=== PATIENT | male | born 1970 | race Hispanic/Latino ===

== ENCOUNTER 2023-02-18 16:50 | Inpatient (IN) | payer BC ==
[~2023-02-18] VITALS: Ht 188 cm; Wt 144.9 kg
[2023-02-18] MEDS ORDERED: AMLO-258 PO (17:51)
[2023-02-18] MEDS ORDERED: ATOR10TA69 PO (17:51)
[2023-02-18] MEDS ORDERED: VANCOMYCIN KIT 1 GM/250 ML IV.KIT IV ONE (18:00)
[2023-02-18] MEDS ORDERED: VANCOMYCIN PROTOCOL PER PHARMACY IV SCH (18:00)
[2023-02-18] MEDS ORDERED: CARV25TA PO (18:05)
[2023-02-18] MEDS ORDERED: INSU100V12 SQ (18:05)
[2023-02-18] MEDS ORDERED: METF-444 PO (18:05)
[2023-02-18] MEDS ORDERED: GLIP5TAB11 PO (18:05)
[2023-02-18] MEDS: CEFEPIME HCL 2 GM VIAL IVPB SCH (18:12)
[2023-02-18 18:52] LABS: BASOPHILS # (AUTO) 0.05 K/uL (0.00-0.20); BASOPHILS % (AUTO) 0.7 % (0.0-5.0); EOSINOPHILS # (AUTO) 0.46 K/uL (0.00-0.70); EOSINOPHILS % (AUTO) 6.6 % (0.0-8.0); HEMATOCRIT 36.1 % (42-54); IMMATURE GRANULOCYTE ABSOLUTE 0.03 K/uL (0-1); LYMPHOCYTES # (AUTO) 1.7 K/uL (1.0-4.8); LYMPHOCYTES % (AUTO) 24.2 % (21.0-51.0); MEAN CORPUSCULAR HEMOGLOBIN 30.2 pg (27.0-33.0); MEAN CORPUSCULAR VOLUME 91.6 fL (79-99); MONOCYTES # (AUTO) 0.6 K/uL (0.1-1.0); NEUTROPHILS # (AUTO) 4.2 K/uL (1.8-7.7); NEUTROPHILS % (AUTO) 60.1 % (40.0-77.0); PLATELET COUNT (AUTO) 401 K/uL (130-400); RED BLOOD CELL COUNT(AUTO) 3.94 MIL/uL (4.50-6.20); RED CELL DISTRIBUTION WIDTH 12.9 % (11.0-15.5)
[2023-02-18 19:12] LABS: CREATININE 0.9 mg/dL (0.5-1.5); POTASSIUM 4.7 mmol/L (3.5-5.1)
[2023-02-18 19:16] LABS: ALBUMIN 3.1 g/dL (3.5-5.0); BILIRUBIN,TOTAL 0.4 mg/dL (0.2-1.0); TOTAL PROTEIN, SERUM 8.5 g/dL (6.0-8.3)
[2023-02-18] MEDS ORDERED: MORPHINE 4 MG SYG IV PRN (21:30)
[2023-02-18] MEDS ORDERED: ACETAMINOPHEN 325 MG TAB PO PRN (21:30)
[2023-02-18] MEDS ORDERED: POTASSIUM CHLORIDE 10% ELIXIR 20 MEQ/15 ML UDCUP PO PRN (21:30)
[2023-02-18] MEDS ORDERED: POTASSIUM CHLORIDE 20MEQ/100ML 100 ML IV PRN (21:30)
[2023-02-18] MEDS ORDERED: ONDANSETRON 4MG INJ IV PRN (21:30)
[2023-02-18] MEDS ORDERED: KCL 20 MEQ ERTAB PO PRN (21:30)
[2023-02-18] MEDS ORDERED: MORPHINE 2 MG SYG IV PRN (21:30)
[2023-02-18 21:50] VITALS: BP 175/94; PULSE 89; RESP 21
[2023-02-18] MEDS ORDERED: AMLO-257 PO (22:14)
[2023-02-18 23:08] VITALS: BP 143/81; PULSE 74; RESP 20
[2023-02-18] MEDS: VANCOMYCIN 1G/250ML KIT 250 ML IV SCH (23:17)
[2023-02-19] VITALS (21 sets, daily range): BP systolic 119–155; BP diastolic 74–85; PULSE 66–83; RESP 17–22; O2SAT 94–96
[2023-02-19] MEDS: ACETAMINOPHEN 325 MG TAB PO PRN ×2 (03:17→23:32)
[2023-02-19] MEDS: CEFEPIME HCL 2 GM VIAL IVPB SCH (05:15)
[2023-02-19 05:19] LABS: BASOPHILS # (AUTO) 0.05 K/uL (0.00-0.20); BASOPHILS % (AUTO) 0.8 % (0.0-5.0); EOSINOPHILS % (AUTO) 7.7 % (0.0-8.0); HEMATOCRIT 33.6 % (42-54); IMMATURE GRANULOCYTE ABSOLUTE 0.04 K/uL (0-1); LYMPHOCYTES # (AUTO) 1.3 K/uL (1.0-4.8); LYMPHOCYTES % (AUTO) 19.3 % (21.0-51.0); MEAN CORPUSCULAR HEMOGLOBIN 29.9 pg (27.0-33.0); MEAN CORPUSCULAR HGB CONC 31.8 g/dL (32.0-36.0); MEAN CORPUSCULAR VOLUME 93.9 fL (79-99); MONOCYTES # (AUTO) 0.8 K/uL (0.1-1.0); MONOCYTES % (AUTO) 11.6 % (3.0-13.0); NEUTROPHILS # (AUTO) 3.9 K/uL (1.8-7.7); PLATELET COUNT (AUTO) 330 K/uL (130-400); RED BLOOD CELL COUNT(AUTO) 3.58 MIL/uL (4.50-6.20); RED CELL DISTRIBUTION WIDTH 12.8 % (11.0-15.5); WHITE BLOOD COUNT (AUTO) 6.5 K/uL (4.8-10.8)
[2023-02-19 05:38] LABS: MAGNESIUM 1.6 mg/dL (1.80-2.40); PHOSPHORUS 3.5 mg/dL (2.5-4.9); POTASSIUM 4.2 mmol/L (3.5-5.1)
[2023-02-19 05:41] LABS: HEMOGLOBIN A1C 8.1 % (4.0-6.0)
[2023-02-19] MEDS: VANCOMYCIN 1G/250ML KIT 250 ML IV SCH ×2 (06:01→14:47)
[2023-02-19] MEDS: INSULIN HUMULIN R 100 UNIT/ML 3ML SQ SCH ×4 (07:09→20:40)
[2023-02-19] MEDS: AMLODIPINE 5 MG TAB PO SCH (08:37)
[2023-02-19] MEDS: FAMOTIDINE 20MG TAB PO SCH ×2 (08:37→20:38)
[2023-02-19] MEDS: GLIPIZIDE 5 MG TABLET PO SCH (08:37)
[2023-02-19] MEDS: CARVEDILOL 25 MG TABLET PO SCH (08:37)
[2023-02-19] MEDS: METFORMIN HCL 500 MG TAB.SR.24H PO SCH (08:38)
[2023-02-19] MEDS: ENOXAPARIN SODIUM 40 MG/0.4 ML SYRINGE SQ SCH (08:38)
[2023-02-19] MEDS ORDERED: INSULIN GLARGINE 100 UNITS/ML 10 ML VIAL SQ ONE (09:00)
[2023-02-19] MEDS ORDERED: FAMOTIDINE 20MG VIAL IV ONE (14:29)
[2023-02-19] MEDS ORDERED: MIDAZOLAM HCL 1 MG/ML 2ML VIAL ONE ×2 (14:36→15:15)
[2023-02-19] MEDS ORDERED: LIDOCAINE PF 100MG/5ML (2%) SYRINGE 5ML ONE (14:36)
[2023-02-19] MEDS ORDERED: FENTANYL CITRATE PF 50 MCG/1 ML 2ML VIAL ONE (14:36)
[2023-02-19] MEDS ORDERED: PROPOFOL 10 MG/ML 20ML VIAL IV ONE (14:36)
[2023-02-19] MEDS ORDERED: VANCOMYCIN 1G/250ML KIT 250 ML IV ONE (14:42)
[2023-02-19] MEDS ORDERED: DiphenhydrAMINE HCL 50 MG/ML VIAL ONE (15:08)
[2023-02-19] MEDS ORDERED: ONDANSETRON 4MG INJ ONE (15:13)
[2023-02-19] MEDS ORDERED: LIDOCAINE HCL 1% 10 ML VIAL ONE (15:17)
[2023-02-19] MEDS ORDERED: BUPIVACAINE/PF 0.25% 10ML VIAL IJ ONE (15:18)
[2023-02-19] MEDS: CEFEPIME HCL 1 GM VIAL IVPB SCH (18:15)
[2023-02-19] MEDS: VANCOMYCIN 1.25 GM/250 ML BAG 250 ML IV SCH (20:38)
[2023-02-19] MEDS: ATORVASTATIN 10 MG TABLET PO SCH (20:38)
[2023-02-19] MEDS: INSULIN GLARGINE 100 UNITS/ML 10 ML VIAL SQ SCH (20:39)
[2023-02-19] MEDS ORDERED: INSULIN DETEMIR 50 UNIT SQ SCH (21:00)
[2023-02-20] MEDS: MAGNESIUM 2GM PREMIX 50ML 50 ML IV PRN ×2 (00:12→12:21)
[2023-02-20 00:15] VITALS: BP 148/81; PULSE 76; RESP 18
[2023-02-20 02:17] LABS: APPEARANCE,URINE CLEAR (CLEAR); BILIRUBIN,URINE NEGATIVE (NEGATIVE); COLOR,URINE LIGHT-YELLOW (YELLOW); GLUCOSE, URINE (UA) NEGATIVE (NEGATIVE); KETONES,URINE NEGATIVE (NEGATIVE); LEUKOCYTE ESTERASE ,URINE NEGATIVE Leu/uL (NEGATIVE); NITRATE,URINE NEGATIVE (NEGATIVE); OCCULT BLOOD,URINE NEGATIVE (NEGATIVE); PH,URINE 5.5 (5.0-8.0); PROTEIN,URINE NEGATIVE (NEGATIVE); UROBILINOGEN,URINE 0.2 mg/dL (0.2-1.0)
[2023-02-20 02:19] LABS: ADD UA MICROSCOPIC NO
[2023-02-20 04:10] VITALS: BP 135/85; PULSE 78; RESP 18
[2023-02-20] MEDS: CEFEPIME HCL 1 GM VIAL IVPB SCH ×2 (04:52→17:56)
[2023-02-20] MEDS: VANCOMYCIN 1.25 GM/250 ML BAG 250 ML IV SCH ×3 (05:40→22:14)
[2023-02-20 05:59] LABS: BASOPHILS # (AUTO) 0.04 K/uL (0.00-0.20); BASOPHILS % (AUTO) 0.6 % (0.0-5.0); EOSINOPHILS # (AUTO) 0.43 K/uL (0.00-0.70); EOSINOPHILS % (AUTO) 6.3 % (0.0-8.0); HEMATOCRIT 34.4 % (42-54); IMMATURE GRANULOCYTE ABSOLUTE 0.04 K/uL (0-1); LYMPHOCYTES # (AUTO) 1.2 K/uL (1.0-4.8); LYMPHOCYTES % (AUTO) 17.7 % (21.0-51.0); MEAN CORPUSCULAR HEMOGLOBIN 29.7 pg (27.0-33.0); MONOCYTES # (AUTO) 0.9 K/uL (0.1-1.0); NEUTROPHILS # (AUTO) 4.2 K/uL (1.8-7.7); NEUTROPHILS % (AUTO) 61.8 % (40.0-77.0); PLATELET COUNT (AUTO) 337 K/uL (130-400); RED CELL DISTRIBUTION WIDTH 12.7 % (11.0-15.5); WHITE BLOOD COUNT (AUTO) 6.8 K/uL (4.8-10.8)
[2023-02-20] MEDS: INSULIN HUMULIN R 100 UNIT/ML 3ML SQ SCH ×4 (06:03→21:42)
[2023-02-20 06:15] LABS: ALBUMIN 2.6 g/dL (3.5-5.0); BILIRUBIN,TOTAL 0.2 mg/dL (0.2-1.0); MAGNESIUM 1.9 mg/dL (1.80-2.40); POTASSIUM 4.5 mmol/L (3.5-5.1); TOTAL PROTEIN, SERUM 7.2 g/dL (6.0-8.3)
[2023-02-20 08:00] VITALS: BP 161/93; PULSE 81; RESP 20
[2023-02-20] MEDS: AMLODIPINE 5 MG TAB PO SCH (08:48)
[2023-02-20] MEDS: GLIPIZIDE 5 MG TABLET PO SCH (08:48)
[2023-02-20] MEDS: FAMOTIDINE 20MG TAB PO SCH ×2 (08:48→21:33)
[2023-02-20] MEDS: ENOXAPARIN SODIUM 40 MG/0.4 ML SYRINGE SQ SCH (08:48)
[2023-02-20] MEDS: METFORMIN HCL 500 MG TAB.SR.24H PO SCH (08:48)
[2023-02-20] MEDS: CARVEDILOL 25 MG TABLET PO SCH (08:53)
[2023-02-20 12:00] VITALS: BP 137/81; PULSE 76; RESP 18
[2023-02-20 16:00] VITALS: BP 132/81; PULSE 75; RESP 18
[2023-02-20 20:00] VITALS: BP 145/82; PULSE 85; RESP 20
[2023-02-20] MEDS: ATORVASTATIN 10 MG TABLET PO SCH (21:33)
[2023-02-20] MEDS: INSULIN GLARGINE 100 UNITS/ML 10 ML VIAL SQ SCH (21:40)
[2023-02-21] VITALS (7 sets, daily range): BP systolic 134–150; BP diastolic 78–86; PULSE 71–81; RESP 18–20; O2SAT 94
[2023-02-21 05:43] LABS: HEMATOCRIT 36.3 % (42-54); MEAN CORPUSCULAR HEMOGLOBIN 29.5 pg (27.0-33.0); MEAN CORPUSCULAR HGB CONC 31.7 g/dL (32.0-36.0); MEAN CORPUSCULAR VOLUME 93.1 fL (79-99); RED BLOOD CELL COUNT(AUTO) 3.9 MIL/uL (4.50-6.20); RED CELL DISTRIBUTION WIDTH 12.6 % (11.0-15.5); WHITE BLOOD COUNT (AUTO) 6.2 K/uL (4.8-10.8)
[2023-02-21] MEDS: CEFEPIME HCL 1 GM VIAL IVPB SCH ×2 (06:29→18:31)
[2023-02-21] MEDS: INSULIN HUMULIN R 100 UNIT/ML 3ML SQ SCH ×4 (06:33→20:32)
[2023-02-21] MEDS: VANCOMYCIN 1.25 GM/250 ML BAG 250 ML IV SCH (07:12)
[2023-02-21] MEDS: ENOXAPARIN SODIUM 40 MG/0.4 ML SYRINGE SQ SCH (10:39)
[2023-02-21] MEDS: CARVEDILOL 25 MG TABLET PO SCH (10:42)
[2023-02-21] MEDS: METFORMIN HCL 500 MG TAB.SR.24H PO SCH (10:42)
[2023-02-21] MEDS: AMLODIPINE 5 MG TAB PO SCH (10:44)
[2023-02-21] MEDS: FAMOTIDINE 20MG TAB PO SCH ×2 (10:44→20:31)
[2023-02-21] MEDS: GLIPIZIDE 5 MG TABLET PO SCH (10:44)
[2023-02-21] MEDS: VANCOMYCIN 1.5 GM/250 ML BAG 250 ML IV SCH (18:33)
[2023-02-21] MEDS: MAGNESIUM 2GM PREMIX 50ML 50 ML IV PRN (20:32)
[2023-02-21] MEDS: ATORVASTATIN 10 MG TABLET PO SCH (20:32)
[2023-02-21] MEDS: INSULIN GLARGINE 100 UNITS/ML 10 ML VIAL SQ SCH (20:33)
[2023-02-22] VITALS (7 sets, daily range): BP systolic 122–150; BP diastolic 73–88; PULSE 70–83; RESP 18–20; O2SAT 94–95
[2023-02-22] MEDS: CEFEPIME HCL 1 GM VIAL IVPB SCH ×2 (04:43→18:14)
[2023-02-22] MEDS: VANCOMYCIN 1.5 GM/250 ML BAG 250 ML IV SCH ×2 (04:43→18:14)
[2023-02-22 06:07] LABS: HEMATOCRIT 33.6 % (42-54); MEAN CORPUSCULAR HEMOGLOBIN 29.6 pg (27.0-33.0); MEAN CORPUSCULAR HGB CONC 33.3 g/dL (32.0-36.0); MEAN CORPUSCULAR VOLUME 88.7 fL (79-99); RED BLOOD CELL COUNT(AUTO) 3.79 MIL/uL (4.50-6.20); RED CELL DISTRIBUTION WIDTH 12.8 % (11.0-15.5); WHITE BLOOD COUNT (AUTO) 5.8 K/uL (4.8-10.8)
[2023-02-22] MEDS: INSULIN HUMULIN R 100 UNIT/ML 3ML SQ SCH ×4 (06:12→20:30)
[2023-02-22 06:22] LABS: ALBUMIN 2.6 g/dL (3.5-5.0); BILIRUBIN,TOTAL 0.2 mg/dL (0.2-1.0); CREATININE 0.8 mg/dL (0.5-1.5); MAGNESIUM 1.8 mg/dL (1.80-2.40); TOTAL PROTEIN, SERUM 7.3 g/dL (6.0-8.3)
[2023-02-22] MEDS: MAGNESIUM 2GM PREMIX 50ML 50 ML IV PRN (06:28)
[2023-02-22] MEDS: AMLODIPINE 5 MG TAB PO SCH (08:49)
[2023-02-22] MEDS: FAMOTIDINE 20MG TAB PO SCH ×2 (08:50→20:30)
[2023-02-22] MEDS: GLIPIZIDE 5 MG TABLET PO SCH (08:50)
[2023-02-22] MEDS: CARVEDILOL 25 MG TABLET PO SCH (08:50)
[2023-02-22] MEDS: METFORMIN HCL 500 MG TAB.SR.24H PO SCH (08:51)
[2023-02-22] MEDS: ENOXAPARIN SODIUM 40 MG/0.4 ML SYRINGE SQ SCH (08:53)
[2023-02-22] MEDS: ATORVASTATIN 10 MG TABLET PO SCH (20:30)
[2023-02-22] MEDS: LISINOPRIL 2.5 MG TABLET PO SCH (20:30)
[2023-02-22] MEDS: INSULIN GLARGINE 100 UNITS/ML 10 ML VIAL SQ SCH (20:31)
[2023-02-23] VITALS (9 sets, daily range): BP systolic 124–145; BP diastolic 72–81; PULSE 69–78; RESP 18–20; O2SAT 94–95
[2023-02-23] MEDS: CEFEPIME HCL 1 GM VIAL IVPB SCH ×2 (05:33→20:34)
[2023-02-23 05:36] LABS: HEMATOCRIT 36.3 % (42-54); MEAN CORPUSCULAR HEMOGLOBIN 29.8 pg (27.0-33.0); MEAN CORPUSCULAR HGB CONC 32.2 g/dL (32.0-36.0); MEAN CORPUSCULAR VOLUME 92.4 fL (79-99); RED BLOOD CELL COUNT(AUTO) 3.93 MIL/uL (4.50-6.20); RED CELL DISTRIBUTION WIDTH 12.6 % (11.0-15.5)
[2023-02-23 05:50] LABS: ALBUMIN 2.9 g/dL (3.5-5.0); BILIRUBIN,TOTAL 0.2 mg/dL (0.2-1.0); CREATININE 1.1 mg/dL (0.5-1.5); MAGNESIUM 1.8 mg/dL (1.80-2.40); POTASSIUM 4.4 mmol/L (3.5-5.1); TOTAL PROTEIN, SERUM 7.7 g/dL (6.0-8.3); VANCOMYCIN TROUGH 19.4 UG/ML (10.0-20.0)
[2023-02-23] MEDS: INSULIN HUMULIN R 100 UNIT/ML 3ML SQ SCH ×4 (05:58→21:00)
[2023-02-23] MEDS ORDERED: PHARMACY COMMUNICATION MISC SCH (06:00)
[2023-02-23] MEDS: MAGNESIUM 2GM PREMIX 50ML 50 ML IV PRN (06:28)
[2023-02-23] MEDS: VANCOMYCIN 1G/250ML KIT 250 ML IV SCH ×2 (10:22→22:14)
[2023-02-23] MEDS: METFORMIN HCL 500 MG TAB.SR.24H PO SCH (10:22)
[2023-02-23] MEDS: CARVEDILOL 25 MG TABLET PO SCH (10:23)
[2023-02-23] MEDS: FAMOTIDINE 20MG TAB PO SCH ×2 (10:24→22:15)
[2023-02-23] MEDS: AMLODIPINE 5 MG TAB PO SCH (10:24)
[2023-02-23] MEDS: GLIPIZIDE 5 MG TABLET PO SCH (10:25)
[2023-02-23] MEDS: LISINOPRIL 2.5 MG TABLET PO SCH ×2 (10:26→22:15)
[2023-02-23] MEDS: ENOXAPARIN SODIUM 40 MG/0.4 ML SYRINGE SQ SCH (10:28)
[2023-02-23 20:10] LABS: RETICULOCYTE % (AUTO) 1.82 % (0.42-2.23)
[2023-02-23 20:34] LABS: % IRON SATURATION 13.2 % (30-44)
[2023-02-23] MEDS: ATORVASTATIN 10 MG TABLET PO SCH (22:15)
[2023-02-23] MEDS: INSULIN GLARGINE 100 UNITS/ML 10 ML VIAL SQ SCH (22:17)
[2023-02-24 04:24] VITALS: BP 149/87; PULSE 70; RESP 17
[2023-02-24] MEDS: CEFEPIME HCL 1 GM VIAL IVPB SCH ×2 (06:00→18:05)
[2023-02-24] MEDS: INSULIN HUMULIN R 100 UNIT/ML 3ML SQ SCH ×3 (06:40→16:30)
[2023-02-24 07:02] LABS: ALBUMIN 2.7 g/dL (3.5-5.0); BILIRUBIN,TOTAL 0.3 mg/dL (0.2-1.0); POTASSIUM 4.1 mmol/L (3.5-5.1); TOTAL PROTEIN, SERUM 7.4 g/dL (6.0-8.3); VANCOMYCIN TROUGH 16.2 UG/ML (10.0-20.0)
[2023-02-24 07:12] LABS: BASOPHILS # (AUTO) 0.07 K/uL (0.00-0.20); BASOPHILS % (AUTO) 1.4 % (0.0-5.0); EOSINOPHILS % (AUTO) 9.8 % (0.0-8.0); HEMATOCRIT 35.3 % (42-54); IMMATURE GRANULOCYTE ABSOLUTE 0.04 K/uL (0-1); LYMPHOCYTES # (AUTO) 1.3 K/uL (1.0-4.8); LYMPHOCYTES % (AUTO) 25.3 % (21.0-51.0); MEAN CORPUSCULAR HEMOGLOBIN 29.5 pg (27.0-33.0); MEAN CORPUSCULAR HGB CONC 32.3 g/dL (32.0-36.0); MEAN CORPUSCULAR VOLUME 91.5 fL (79-99); MONOCYTES # (AUTO) 0.7 K/uL (0.1-1.0); MONOCYTES % (AUTO) 13.3 % (3.0-13.0); NEUTROPHILS # (AUTO) 2.5 K/uL (1.8-7.7); NEUTROPHILS % (AUTO) 49.4 % (40.0-77.0); PLATELET COUNT (AUTO) 377 K/uL (130-400); RED BLOOD CELL COUNT(AUTO) 3.86 MIL/uL (4.50-6.20); RED CELL DISTRIBUTION WIDTH 12.8 % (11.0-15.5); WHITE BLOOD COUNT (AUTO) 5.1 K/uL (4.8-10.8)
[2023-02-24 08:00] VITALS: BP 151/88; PULSE 72; RESP 18
[2023-02-24] MEDS ORDERED: CARVEDILOL 25 MG TABLET PO SCH (09:00)
[2023-02-24 09:40] VITALS: O2SAT 96
[2023-02-24] MEDS: VANCOMYCIN 1G/250ML KIT 250 ML IV SCH (09:42)
[2023-02-24] MEDS: LISINOPRIL 2.5 MG TABLET PO SCH (09:43)
[2023-02-24] MEDS: FAMOTIDINE 20MG TAB PO SCH (09:44)
[2023-02-24] MEDS: METFORMIN HCL 500 MG TAB.SR.24H PO SCH (09:44)
[2023-02-24] MEDS: GLIPIZIDE 5 MG TABLET PO SCH (09:44)
[2023-02-24] MEDS: AMLODIPINE 5 MG TAB PO SCH (09:45)
[2023-02-24] MEDS: ENOXAPARIN SODIUM 40 MG/0.4 ML SYRINGE SQ SCH (09:46)
[2023-02-24 11:59] VITALS: BP 121/72; PULSE 74; RESP 18
[2023-02-24 17:12] VITALS: BP 120/72; PULSE 69; RESP 18
[2023-02-24 20:00] VITALS: BP 137/79; PULSE 71; RESP 15
== END 2023-02-24 20:40 | DRG 617 ==
LOC: EDH 16:50 → DIRECT 16:51 → UNDOADMIN 17:37 → DIRECT 21:37 → 3CH 21:37
PROVIDERS: ADMIT Internal Medicine; ATTEND Internal Medicine
PROC: 0QBN0ZZ Excision of Right Metatarsal, Open Approach (ICD-10-PCS; 2023-02-19)
PROC: 0Y6T0Z0 Detachment at Right 3rd Toe, Complete, Open Approach (ICD-10-PCS; principal; 2023-02-19 15:06)
DX: E11.69 Type 2 diabetes mellitus with other specified complication (principal); L03.115 Cellulitis of right lower limb; M86.8X7 Other osteomyelitis, ankle and foot; Z68.41 Body mass index [BMI] 40.0-44.9, adult; E11.51 Type 2 diabetes mellitus with diabetic peripheral angiopathy without gangrene; E11.621 Type 2 diabetes mellitus with foot ulcer; I10 Essential (primary) hypertension; E78.5 Hyperlipidemia, unspecified; E66.01 Morbid (severe) obesity due to excess calories; D64.9 Anemia, unspecified; Z79.4 Long term (current) use of insulin; Z83.3 Family history of diabetes mellitus
CPT/HCPCS: 36415; 71045; 73630; 73718; 80048; 80053; 80202; 81003; 82607; 82728; 82746; 82948; 83036; 83540; 83550; 83605; 83735; 84100; 84145; 85025; 85027; 85045; 86850; 86900; 86901; 87040; 87070; 87076; 87077; 87186; 88304; 88311; 93925; G0378; J0692; J1200; J1650; J1815; J2001; J2250; J2405; J2704; J3010; J3370; J3475; J3490; 3370; A4216; A4222; A4223; A6446; C1729

== ENCOUNTER 2023-05-19 12:10 | Inpatient (IN) | payer BC ==
[~2023-05-19] VITALS: Ht 190.5 cm; Wt 140.5 kg
[~2023-05-19 12:10] MED LIST: AMLO-257 PO; ATOR10TA69 PO
[2023-05-19] MEDS ORDERED: 0.9%NACL 1000ML 1,000 ML IV ONE (13:00)
[2023-05-19] MEDS ORDERED: VANCOMYCIN PROTOCOL PER PHARMACY IV SCH (13:00)
[2023-05-19] MEDS ORDERED: CEFEPIME HCL 2 GM VIAL IVPB SCH (13:00)
[2023-05-19 14:16] LABS: BASOPHILS # (AUTO) 0.03 K/uL (0.00-0.20); BASOPHILS % (AUTO) 0.4 % (0.0-5.0); EOSINOPHILS # (AUTO) 0.04 K/uL (0.00-0.70); EOSINOPHILS % (AUTO) 0.5 % (0.0-8.0); HEMATOCRIT 37.7 % (42-54); IMMATURE GRANULOCYTE ABSOLUTE 0.03 K/uL (0-1); LYMPHOCYTES # (AUTO) 1.2 K/uL (1.0-4.8); LYMPHOCYTES % (AUTO) 13.9 % (21.0-51.0); MEAN CORPUSCULAR HEMOGLOBIN 29.3 pg (27.0-33.0); MEAN CORPUSCULAR HGB CONC 32.4 g/dL (32.0-36.0); MEAN CORPUSCULAR VOLUME 90.6 fL (79-99); MONOCYTES # (AUTO) 0.9 K/uL (0.1-1.0); MONOCYTES % (AUTO) 11.2 % (3.0-13.0); NEUTROPHILS # (AUTO) 6.1 K/uL (1.8-7.7); NEUTROPHILS % (AUTO) 73.6 % (40.0-77.0); PLATELET COUNT (AUTO) 251 K/uL (130-400); RED BLOOD CELL COUNT(AUTO) 4.16 MIL/uL (4.50-6.20); RED CELL DISTRIBUTION WIDTH 13.5 % (11.0-15.5); WHITE BLOOD COUNT (AUTO) 8.3 K/uL (4.8-10.8)
[2023-05-19 14:24] LABS: HEMOGLOBIN A1C 7.4 % (4.0-6.0)
[2023-05-19 14:32] LABS: CREATININE 1.1 mg/dL (0.5-1.5)
[2023-05-19 14:48] LABS: THYROID STIMULATING HORMONE 0.75 uIU/mL (0.36-3.74)
[2023-05-19 15:04] LABS: POTASSIUM 4.1 mmol/L (3.5-5.1)
[2023-05-19 15:23] LABS: ERYTHROCYTE SEDIMENTATION RATE 105 MM/HR (0-20)
[2023-05-19] MEDS: INSULIN HUMULIN R 100 UNIT/ML 3ML SQ SCH ×2 (16:30→20:55)
[2023-05-19] MEDS: VANCOMYCIN 1G/250ML KIT 250 ML IV SCH (20:31)
[2023-05-19] MEDS: INSULIN GLARGINE 100 UNITS/ML 10 ML VIAL SQ SCH (21:08)
[2023-05-19 23:00] VITALS: BP 166/98; PULSE 109; RESP 20
[2023-05-20] VITALS (9 sets, daily range): BP systolic 140–185; BP diastolic 72–95; PULSE 84–95; RESP 16–20; TEMP 101; O2SAT 94–98
[2023-05-20] MEDS: CEFEPIME HCL 1 GM VIAL IVPB SCH ×2 (01:41→12:27)
[2023-05-20] MEDS: ACETAMINOPHEN 500 MG TABLET PO PRN ×3 (01:50→19:57)
[2023-05-20] MEDS: VANCOMYCIN 1G/250ML KIT 250 ML IV SCH ×3 (06:05→22:49)
[2023-05-20] MEDS: INSULIN HUMULIN R 100 UNIT/ML 3ML SQ SCH ×4 (06:15→20:21)
[2023-05-20 07:36] LABS: BASOPHILS # (AUTO) 0.03 K/uL (0.00-0.20); BASOPHILS % (AUTO) 0.5 % (0.0-5.0); EOSINOPHILS # (AUTO) 0.04 K/uL (0.00-0.70); EOSINOPHILS % (AUTO) 0.6 % (0.0-8.0); HEMATOCRIT 32.6 % (42-54); IMMATURE GRANULOCYTE ABSOLUTE 0.02 K/uL (0-1); LYMPHOCYTES # (AUTO) 0.8 K/uL (1.0-4.8); LYMPHOCYTES % (AUTO) 12.5 % (21.0-51.0); MEAN CORPUSCULAR HEMOGLOBIN 29.6 pg (27.0-33.0); MEAN CORPUSCULAR HGB CONC 32.5 g/dL (32.0-36.0); MEAN CORPUSCULAR VOLUME 91.1 fL (79-99); MONOCYTES # (AUTO) 0.9 K/uL (0.1-1.0); NEUTROPHILS # (AUTO) 4.9 K/uL (1.8-7.7); NEUTROPHILS % (AUTO) 73.1 % (40.0-77.0); PLATELET COUNT (AUTO) 251 K/uL (130-400); RED BLOOD CELL COUNT(AUTO) 3.58 MIL/uL (4.50-6.20); RED CELL DISTRIBUTION WIDTH 13.6 % (11.0-15.5); WHITE BLOOD COUNT (AUTO) 6.6 K/uL (4.8-10.8)
[2023-05-20 08:43] LABS: POTASSIUM 4.2 mmol/L (3.5-5.1)
[2023-05-20 08:51] LABS: ERYTHROCYTE SEDIMENTATION RATE 71 MM/HR (0-20)
[2023-05-20 08:53] LABS: ALBUMIN 2.5 g/dL (3.5-5.0); BILIRUBIN,TOTAL 0.5 mg/dL (0.2-1.0); TOTAL PROTEIN, SERUM 7.3 g/dL (6.0-8.3)
[2023-05-20] MEDS: AMLODIPINE 5 MG TAB PO SCH (14:56)
[2023-05-20] MEDS: FAMOTIDINE 20MG TAB PO SCH (20:19)
[2023-05-20] MEDS: ATORVASTATIN 10 MG TABLET PO SCH (20:19)
[2023-05-20] MEDS: INSULIN GLARGINE 100 UNITS/ML 10 ML VIAL SQ SCH (20:22)
[2023-05-21] VITALS (28 sets, daily range): BP systolic 133–174; BP diastolic 61–89; PULSE 79–112; RESP 16–31; O2SAT 94
[2023-05-21] MEDS: CEFEPIME HCL 1 GM VIAL IVPB SCH ×2 (01:13→13:18)
[2023-05-21] MEDS: VANCOMYCIN 1G/250ML KIT 250 ML IV SCH (05:32)
[2023-05-21] MEDS: INSULIN HUMULIN R 100 UNIT/ML 3ML SQ SCH ×4 (05:53→21:19)
[2023-05-21 07:11] LABS: BASOPHILS # (AUTO) 0.02 K/uL (0.00-0.20); BASOPHILS % (AUTO) 0.3 % (0.0-5.0); EOSINOPHILS # (AUTO) 0.04 K/uL (0.00-0.70); EOSINOPHILS % (AUTO) 0.5 % (0.0-8.0); HEMATOCRIT 33.2 % (42-54); IMMATURE GRANULOCYTE ABSOLUTE 0.05 K/uL (0-1); LYMPHOCYTES # (AUTO) 0.7 K/uL (1.0-4.8); MEAN CORPUSCULAR HEMOGLOBIN 29.1 pg (27.0-33.0); MEAN CORPUSCULAR HGB CONC 32.5 g/dL (32.0-36.0); MEAN CORPUSCULAR VOLUME 89.5 fL (79-99); MONOCYTES % (AUTO) 13.5 % (3.0-13.0); NEUTROPHILS # (AUTO) 5.6 K/uL (1.8-7.7); PLATELET COUNT (AUTO) 275 K/uL (130-400); RED BLOOD CELL COUNT(AUTO) 3.71 MIL/uL (4.50-6.20); RED CELL DISTRIBUTION WIDTH 13.4 % (11.0-15.5); WHITE BLOOD COUNT (AUTO) 7.4 K/uL (4.8-10.8)
[2023-05-21 07:29] LABS: ALBUMIN 2.2 g/dL (3.5-5.0); BILIRUBIN,TOTAL 0.5 mg/dL (0.2-1.0); POTASSIUM 4.1 mmol/L (3.5-5.1); TOTAL PROTEIN, SERUM 7.2 g/dL (6.0-8.3)
[2023-05-21] MEDS ORDERED: AMLODIPINE 5 MG TAB PO SCH (09:00)
[2023-05-21] MEDS: FAMOTIDINE 20MG TAB PO SCH ×2 (09:00→20:08)
[2023-05-21] MEDS: AMLODIPINE 5 MG TAB PO SCH (09:00)
[2023-05-21] MEDS ORDERED: HYDRALAZINE 20MG/ML VIAL IV PRN (11:30)
[2023-05-21] MEDS ORDERED: BUPIVACAINE/PF 0.25% 30ML VIAL IJ ONE (11:50)
[2023-05-21] MEDS ORDERED: LIDOCAINE HCL 1% 20 ML VIAL ONE (11:50)
[2023-05-21] MEDS ORDERED: BUPIVACAINE/PF 0.5% 30ML VIAL ONE (12:22)
[2023-05-21] MEDS ORDERED: 0.9%NACL 1000ML 1,000 ML IV ONE (12:59)
[2023-05-21] MEDS ORDERED: VANCOMYCIN 1G/250ML KIT 250 ML IV ONE (13:11)
[2023-05-21] MEDS ORDERED: FAMOTIDINE 20MG VIAL IV ONE (13:15)
[2023-05-21] MEDS ORDERED: PROPOFOL 1000 MG/100 ML 100 ML IV ONE (13:21)
[2023-05-21] MEDS ORDERED: MIDAZOLAM HCL 1 MG/ML 2ML VIAL ONE (13:28)
[2023-05-21] MEDS ORDERED: FENTANYL CITRATE PF 50 MCG/1 ML 2ML VIAL ONE (13:28)
[2023-05-21] MEDS ORDERED: BUPIVACAINE/PF 0.5% 30ML VIAL INJ ONE (13:40)
[2023-05-21] MEDS ORDERED: LIDOCAINE HCL 1% 20 ML VIAL INJ ONE (13:40)
[2023-05-21] MEDS ORDERED: MEPERIDINE-PF 25 MG/ML SYG ONE (13:57)
[2023-05-21] MEDS ORDERED: VANCOMYCIN KIT 1 GM/250 ML IV.KIT IV ONE (14:00)
[2023-05-21] MEDS ORDERED: VANCOMYCIN 1.5 GM/250 ML BAG 250 ML IV SCH (14:00)
[2023-05-21] MEDS: VANCOMYCIN 1.5 GM/250 ML BAG 250 ML IV SCH (16:19)
[2023-05-21] MEDS: ATORVASTATIN 10 MG TABLET PO SCH (20:08)
[2023-05-21] MEDS: INSULIN GLARGINE 100 UNITS/ML 10 ML VIAL SQ SCH (21:21)
[2023-05-22] VITALS (8 sets, daily range): BP systolic 119–158; BP diastolic 75–85; PULSE 82–98; RESP 18–20; O2SAT 95–96
[2023-05-22] MEDS: CEFEPIME HCL 1 GM VIAL IVPB SCH ×2 (00:28→12:38)
[2023-05-22 05:18] LABS: BASOPHILS # (AUTO) 0.04 K/uL (0.00-0.20); BASOPHILS % (AUTO) 0.6 % (0.0-5.0); EOSINOPHILS # (AUTO) 0.04 K/uL (0.00-0.70); EOSINOPHILS % (AUTO) 0.6 % (0.0-8.0); HEMATOCRIT 32.5 % (42-54); IMMATURE GRANULOCYTE ABSOLUTE 0.06 K/uL (0-1); LYMPHOCYTES # (AUTO) 0.9 K/uL (1.0-4.8); LYMPHOCYTES % (AUTO) 11.8 % (21.0-51.0); MEAN CORPUSCULAR HEMOGLOBIN 29.2 pg (27.0-33.0); MEAN CORPUSCULAR HGB CONC 32.3 g/dL (32.0-36.0); MEAN CORPUSCULAR VOLUME 90.3 fL (79-99); MONOCYTES % (AUTO) 13.8 % (3.0-13.0); NEUTROPHILS # (AUTO) 5.2 K/uL (1.8-7.7); NEUTROPHILS % (AUTO) 72.4 % (40.0-77.0); PLATELET COUNT (AUTO) 323 K/uL (130-400); RED CELL DISTRIBUTION WIDTH 13.5 % (11.0-15.5); WHITE BLOOD COUNT (AUTO) 7.2 K/uL (4.8-10.8)
[2023-05-22 05:41] LABS: ALBUMIN 2.1 g/dL (3.5-5.0); BILIRUBIN,TOTAL 0.5 mg/dL (0.2-1.0); POTASSIUM 4.2 mmol/L (3.5-5.1); TOTAL PROTEIN, SERUM 7.1 g/dL (6.0-8.3)
[2023-05-22] MEDS: VANCOMYCIN 1.5 GM/250 ML BAG 250 ML IV SCH ×2 (06:15→15:19)
[2023-05-22] MEDS: INSULIN HUMULIN R 100 UNIT/ML 3ML SQ SCH ×4 (06:17→20:55)
[2023-05-22] MEDS: ACETAMINOPHEN 500 MG TABLET PO PRN ×2 (06:52→20:36)
[2023-05-22] MEDS: FAMOTIDINE 20MG TAB PO SCH ×2 (09:26→20:36)
[2023-05-22] MEDS: AMLODIPINE 5 MG TAB PO SCH (09:26)
[2023-05-22] MEDS: ATORVASTATIN 10 MG TABLET PO SCH (20:36)
[2023-05-22] MEDS: INSULIN GLARGINE 100 UNITS/ML 10 ML VIAL SQ SCH (20:54)
[2023-05-23] VITALS (7 sets, daily range): BP systolic 142–152; BP diastolic 76–86; PULSE 84–91; RESP 16–20; O2SAT 95–96
[2023-05-23] MEDS: CEFEPIME HCL 1 GM VIAL IVPB SCH ×2 (01:01→12:39)
[2023-05-23] MEDS: VANCOMYCIN 1.5 GM/250 ML BAG 250 ML IV SCH (04:18)
[2023-05-23 04:50] LABS: BASOPHILS # (AUTO) 0.04 K/uL (0.00-0.20); BASOPHILS % (AUTO) 0.6 % (0.0-5.0); EOSINOPHILS # (AUTO) 0.23 K/uL (0.00-0.70); EOSINOPHILS % (AUTO) 3.3 % (0.0-8.0); HEMATOCRIT 31.8 % (42-54); LYMPHOCYTES # (AUTO) 1.2 K/uL (1.0-4.8); LYMPHOCYTES % (AUTO) 17.4 % (21.0-51.0); MEAN CORPUSCULAR HEMOGLOBIN 29.6 pg (27.0-33.0); MEAN CORPUSCULAR VOLUME 89.6 fL (79-99); MONOCYTES # (AUTO) 1.1 K/uL (0.1-1.0); MONOCYTES % (AUTO) 15.8 % (3.0-13.0); NEUTROPHILS # (AUTO) 4.2 K/uL (1.8-7.7); NEUTROPHILS % (AUTO) 61.4 % (40.0-77.0); PLATELET COUNT (AUTO) 330 K/uL (130-400); RED BLOOD CELL COUNT(AUTO) 3.55 MIL/uL (4.50-6.20); RED CELL DISTRIBUTION WIDTH 13.2 % (11.0-15.5); WHITE BLOOD COUNT (AUTO) 6.9 K/uL (4.8-10.8)
[2023-05-23 05:02] LABS: BILIRUBIN,TOTAL 0.4 mg/dL (0.2-1.0); POTASSIUM 3.9 mmol/L (3.5-5.1); TOTAL PROTEIN, SERUM 7.2 g/dL (6.0-8.3)
[2023-05-23] MEDS: INSULIN HUMULIN R 100 UNIT/ML 3ML SQ SCH ×4 (06:32→21:32)
[2023-05-23] MEDS: FAMOTIDINE 20MG TAB PO SCH ×2 (08:23→21:23)
[2023-05-23] MEDS: AMLODIPINE 5 MG TAB PO SCH (08:23)
[2023-05-23] MEDS: VANCOMYCIN 1.75 GM/250 ML BAG 250 ML IV SCH (18:38)
[2023-05-23] MEDS: ATORVASTATIN 10 MG TABLET PO SCH (21:23)
[2023-05-23] MEDS: ACETAMINOPHEN 500 MG TABLET PO PRN (21:26)
[2023-05-23] MEDS: INSULIN GLARGINE 100 UNITS/ML 10 ML VIAL SQ SCH (21:31)
[2023-05-24] VITALS (8 sets, daily range): BP systolic 142–160; BP diastolic 79–89; PULSE 81–93; RESP 18–20; O2SAT 97–98
[2023-05-24] MEDS: CEFEPIME HCL 1 GM VIAL IVPB SCH ×2 (03:03→13:42)
[2023-05-24] MEDS: VANCOMYCIN 1.75 GM/250 ML BAG 250 ML IV SCH ×2 (05:17→17:43)
[2023-05-24 06:25] LABS: BASOPHILS # (AUTO) 0.03 K/uL (0.00-0.20); BASOPHILS % (AUTO) 0.5 % (0.0-5.0); EOSINOPHILS # (AUTO) 0.28 K/uL (0.00-0.70); EOSINOPHILS % (AUTO) 4.4 % (0.0-8.0); LYMPHOCYTES # (AUTO) 1.3 K/uL (1.0-4.8); LYMPHOCYTES % (AUTO) 19.5 % (21.0-51.0); MEAN CORPUSCULAR HEMOGLOBIN 28.8 pg (27.0-33.0); MEAN CORPUSCULAR HGB CONC 32.8 g/dL (32.0-36.0); MEAN CORPUSCULAR VOLUME 87.7 fL (79-99); MONOCYTES # (AUTO) 0.9 K/uL (0.1-1.0); MONOCYTES % (AUTO) 14.7 % (3.0-13.0); NEUTROPHILS # (AUTO) 3.8 K/uL (1.8-7.7); NEUTROPHILS % (AUTO) 59.3 % (40.0-77.0); PLATELET COUNT (AUTO) 383 K/uL (130-400); RED BLOOD CELL COUNT(AUTO) 3.65 MIL/uL (4.50-6.20); RED CELL DISTRIBUTION WIDTH 13.2 % (11.0-15.5); WHITE BLOOD COUNT (AUTO) 6.4 K/uL (4.8-10.8)
[2023-05-24] MEDS: INSULIN HUMULIN R 100 UNIT/ML 3ML SQ SCH ×4 (06:27→21:59)
[2023-05-24 06:42] LABS: BILIRUBIN,TOTAL 0.4 mg/dL (0.2-1.0); CREATININE 0.8 mg/dL (0.5-1.5); MAGNESIUM 1.6 mg/dL (1.80-2.40); POTASSIUM 3.9 mmol/L (3.5-5.1); TOTAL PROTEIN, SERUM 7.3 g/dL (6.0-8.3)
[2023-05-24] MEDS: AMLODIPINE 5 MG TAB PO SCH (08:50)
[2023-05-24] MEDS: FAMOTIDINE 20MG TAB PO SCH ×2 (08:50→21:54)
[2023-05-24] MEDS: ATORVASTATIN 10 MG TABLET PO SCH (21:54)
[2023-05-24] MEDS: INSULIN GLARGINE 100 UNITS/ML 10 ML VIAL SQ SCH (21:59)
[2023-05-25 00:07] VITALS: BP 142/76; PULSE 90; RESP 18
[2023-05-25] MEDS: CEFEPIME HCL 1 GM VIAL IVPB SCH (02:45)
[2023-05-25 04:52] VITALS: BP 147/87; PULSE 66; RESP 18
[2023-05-25] MEDS: VANCOMYCIN 1.75 GM/250 ML BAG 250 ML IV SCH (06:35)
[2023-05-25] MEDS: INSULIN HUMULIN R 100 UNIT/ML 3ML SQ SCH ×2 (06:41→12:38)
[2023-05-25 07:38] LABS: BASOPHILS # (AUTO) 0.04 K/uL (0.00-0.20); BASOPHILS % (AUTO) 0.5 % (0.0-5.0); EOSINOPHILS # (AUTO) 0.22 K/uL (0.00-0.70); HEMATOCRIT 33.2 % (42-54); IMMATURE GRANULOCYTE ABSOLUTE 0.12 K/uL (0-1); LYMPHOCYTES # (AUTO) 1.5 K/uL (1.0-4.8); LYMPHOCYTES % (AUTO) 20.9 % (21.0-51.0); MEAN CORPUSCULAR HEMOGLOBIN 29.1 pg (27.0-33.0); MEAN CORPUSCULAR HGB CONC 33.1 g/dL (32.0-36.0); MEAN CORPUSCULAR VOLUME 87.8 fL (79-99); NEUTROPHILS # (AUTO) 4.4 K/uL (1.8-7.7); PLATELET COUNT (AUTO) 422 K/uL (130-400); RED BLOOD CELL COUNT(AUTO) 3.78 MIL/uL (4.50-6.20); RED CELL DISTRIBUTION WIDTH 13.3 % (11.0-15.5); WHITE BLOOD COUNT (AUTO) 7.3 K/uL (4.8-10.8)
[2023-05-25 07:58] LABS: ALBUMIN 2.2 g/dL (3.5-5.0); BILIRUBIN,TOTAL 0.4 mg/dL (0.2-1.0); CREATININE 0.9 mg/dL (0.5-1.5); TOTAL PROTEIN, SERUM 7.4 g/dL (6.0-8.3)
[2023-05-25 08:00] VITALS: BP 143/81; PULSE 85; RESP 16; O2SAT 98
[2023-05-25] MEDS: AMLODIPINE 5 MG TAB PO SCH (09:38)
[2023-05-25] MEDS: FAMOTIDINE 20MG TAB PO SCH (09:38)
[2023-05-25 12:00] VITALS: BP 152/92; PULSE 81; RESP 14
== END 2023-05-25 16:45 | DRG 475 ==
LOC: EDH 12:10 → DIRECT 12:59 → 3DH 22:55
PROVIDERS: ADMIT Internal Medicine; ATTEND Internal Medicine
PROC: 0Y6M0ZD Detachment at Right Foot, Partial 4th Ray, Open Approach (ICD-10-PCS; 2023-05-21)
PROC: 0Y6M0ZF Detachment at Right Foot, Partial 5th Ray, Open Approach (ICD-10-PCS; 2023-05-21)
PROC: 0Y6M0ZB Detachment at Right Foot, Partial 2nd Ray, Open Approach (ICD-10-PCS; principal; 2023-05-21 13:35)
DX: M86.171 Other acute osteomyelitis, right ankle and foot (principal); L03.115 Cellulitis of right lower limb; Z68.41 Body mass index [BMI] 40.0-44.9, adult; E11.69 Type 2 diabetes mellitus with other specified complication; E11.621 Type 2 diabetes mellitus with foot ulcer; E11.622 Type 2 diabetes mellitus with other skin ulcer; R53.81 Other malaise; E66.01 Morbid (severe) obesity due to excess calories; L97.519 Non-pressure chronic ulcer of other part of right foot with unspecified severity; E11.65 Type 2 diabetes mellitus with hyperglycemia; E78.5 Hyperlipidemia, unspecified; I10 Essential (primary) hypertension; Z83.3 Family history of diabetes mellitus; Z87.891 Personal history of nicotine dependence; Z89.411 Acquired absence of right great toe; Z90.49 Acquired absence of other specified parts of digestive tract
CPT/HCPCS: 36415; 71045; 73630; 73718; 80048; 80053; 80202; 82948; 83036; 83735; 84145; 84443; 85025; 85651; 86140; 87040; 87070; 87076; 87077; 87186; 87205; G0378; J0692; J1815; J2175; J2250; J2704; J3010; J3370; J3490; J7030; A4215; A4216; A4222; A4223; A4649; A6446; C1729; J0665